=== PATIENT | male | born 1960 | race Caucasian/White ===

== ENCOUNTER → 2021-07-28 11:22 | Outpatient (BNVA) | payer OTHER, SELFPAY ==
[2020-12-27 10:30] VITALS: BP 107/69; BMI 27.8
== END ==
PROVIDERS: PCP Family Medicine; Visit Provider Psychiatry & Neurology Psychiatry
DX: F41.1 Generalized anxiety disorder (principal); F43.29 Adjustment disorder with other symptoms
CPT/HCPCS: 90792

== ENCOUNTER → 2021-10-25 09:11 | Outpatient (BNVA) | payer OTHER, SELFPAY ==
[2021-08-31 11:18] VITALS: BP 132/81; BMI 27.6
== END ==
PROVIDERS: PCP Family Medicine; Visit Provider Psychiatry & Neurology Psychiatry
DX: F41.1 Generalized anxiety disorder (principal); F43.29 Adjustment disorder with other symptoms
CPT/HCPCS: 99214

== ENCOUNTER → 2024-05-21 10:40 | Outpatient (BNVA) | payer OTHER, SELFPAY ==
[2023-07-10 08:27] VITALS: BP 132/73; BMI 27.7
== END ==
PROVIDERS: PCP Family Medicine; Visit Provider Family Medicine
DX: C61 Malignant neoplasm of prostate (principal); C79.51 Secondary malignant neoplasm of bone; M79.89 Other specified soft tissue disorders; F41.1 Generalized anxiety disorder; Z12.5 Encounter for screening for malignant neoplasm of prostate; F33.41 Major depressive disorder, recurrent, in partial remission; R30.9 Painful micturition, unspecified; R79.89 Other specified abnormal findings of blood chemistry; I10 Essential (primary) hypertension
CPT/HCPCS: 80053; 81000; 82607; 83735; 83880; 84443; 85025; 85651; 86140; 87086; G0103